=== PATIENT | female | born 1960 | race Caucasian/White ===

== ENCOUNTER 2016-11-05 23:38 | Emergency (ER) | payer MEDICAID ==
--- NOTE | ~2016-11-05 | CR58 ---
[facility] A Service of [facility] RADIOLOGY TEXT RESULTS PATIENT: JOSUE GARCES LOCATION: SED : 62 UNIT #: [id number] AGE: [address]: Daniel Pereira MD SEX: F ORDER DR: [id number] [address] [address] [id number] E MR#: [id number] Acc #: [id number] NAME: JOSUE GARCES : 1960 SEX: F STUDY DATE/TIME: 11/06/2016 0:44 UNIT: SED ROOM: STUDY DESCRIPTION: CR Cervical Spine 2 or 3 Views Attending Physician: Daniel Pereira M.D. Ordering Physician: Daniel Pereira M.D. Primary Care Physician: Gagan Hodge M.D. MEDICAL IMAGING REPORT This report is preliminary unless electronic signature is present. EXAM Cervical series, 11/06/2016 INDICATION 56-year-old female with chronic neck pain posteriorly for the past month, intermittently. TECHNIQUE Lateral swimmer's, open mouth odontoid AP and dedicated odontoid views were performed. COMPARISON 03/01/2015 FINDINGS Dens and lateral masses are intact. No acute fracture. Minimal uncovertebral spurring in the mid and lower cervical levels. Prevertebral soft tissues are unremarkable. Cervicothoracic junction intact. There is mild facet arthropathy in the mid and upper cervical levels. Minimal degenerative disc disease at C6-7 with spur formation similar to the prior study. IMPRESSION 1. No acute fracture or malalignment. 2. Degenerative changes as described similar to the prior study. Dictated by... Pedro Luis Merritt M.D. THIS IS AN ELECTRONICALLY VERIFIED REPORT Pedro Luis Merritt M.D. at 11/06/2016 9:56 PM [facility] A Service [facility] & [facility] RADIOLOGY TEXT RESULTS PATIENT: JOSUE GARCES LOCATION: SED : 62 UNIT #: [id number] AGE: [address]: Daniel Pereira MD SEX: F ORDER DR: KELSIE/patricia TD: 11/06/2016 10:27 JOB #: [id number] MEDICAL IMAGING REPORT Page 1 of 1
[~2016-11-05 23:38] MED LIST: ABILIFY5 MG PO; ACETAMINOPHEN PO; ADVIL200 M1 PO; ALPRAZOLAM PO; AMBIEN PO; ANTIVERT PO; ASPIRIN PO; ATIVAN PO; BENTYL10 MG PO; BENZONATATE PO; CIPRO PO; EFFEXOR-XR150 MG PO; FIORICET1 TAB PO; HCTZ PO; HYDROCODON-ACE1 EAC7 PO; HYDROCODON-ACE1 EAC9 PO; HYDROCODONE 7.5MG PO; HYDROCODONE/APA1 T16 PO; IBUPROFEN PO; IMITREX25 MG PO; LEVAQUIN750 MG PO; LISINOPRIL PO; LITHIUM PO; LORTAB 10/500 T1 TAB PO; LORTAB 5/500 TA1 TA1 PO; LORTAB 5/500 TA1 TA2 PO; METOPROLOL SUCC25 MG PO; MOTRIN600 M1 PO; NAPROXEN PO; NEURONTIN PO; PHENERGAN PO; PHENERGAN25 M1 DOB; PHENERGAN25 M1 PO; PRILOSEC PO; PROZAC PO; SEROQUEL PO; SYMBYAX 6-251 UDCAP PO; SYMBYAX PO; ULTRAM PO; VICODIN 5/500 T1 TAB PO; VICODIN PO; VOLTAREN75 MG PO; ZESTRIL10 M1 PO; ZOFRAN ODT4 MG PO
[2016-11-06] MEDS ORDERED: FLEXERIL10 MG PO (01:53)
== END 2016-11-06 01:59 | disposition home or self-care (01) ==
LOC: SED 23:38
DX: M54.2 Cervicalgia (principal); K21.9 Gastro-esophageal reflux disease without esophagitis; F17.200 Nicotine dependence, unspecified, uncomplicated; Z79.899 Other long term (current) drug therapy; Z88.5 Allergy status to narcotic agent; Z88.8 Allergy status to other drugs, medicaments and biological substances; Z91.010 Allergy to peanuts
CPT/HCPCS: 72040; 99283

== ENCOUNTER → 2016-12-27 | Outpatient (CLI) | payer MEDICAID ==
[~2016-12-27] MED LIST changes: +FLEXERIL10 MG PO; +OXYCONTIN
--- NOTE | ~2016-12-27 | CR93 ---
[facility] A Service of [facility] & [facility] RADIOLOGY TEXT RESULTS PATIENT: JOSUE GARCES LOCATION: SRALashell : 62 UNIT #: [id number] AGE: [address]: PARUL HESS SEX: F ORDER DR: [id number] [address] [address] [id number] O MR#: [id number] Acc #: [id number] NAME: JOSUE GARCES : 1960 SEX: F STUDY DATE/TIME: 12/27/2016 9:59 UNIT: [facility] ROOM: STUDY DESCRIPTION: CR Elbow Min 3 Views Lt Attending Physician: Parul Hess Referring Physician: Parul Hess Ordering Physician: Physician Non-Staff Primary Care Physician: Gagan Hodge M.D. MEDICAL IMAGING REPORT This report is preliminary unless electronic signature is present. EXAM Left elbow HISTORY Medial elbow pain for the past 2 months. TECHNIQUE 3 views of the elbow were obtained. FINDINGS 3 views of the elbow show a small elbow joint effusion. There is no evidence of fracture, bony erosion or large osteophyte. No osteochondral fragments are seen. IMPRESSION Elbow joint effusion. No bony abnormalities are seen. Dictated by... Obi Omalley M.D. THIS IS AN ELECTRONICALLY VERIFIED REPORT Obi Omalley M.D. at 12/27/2016 6:20 PM FERNANDO/angelica TD: 12/27/2016 10:57 JOB #: [id number] MEDICAL IMAGING REPORT Page 1 of 1
== END | disposition home or self-care (01) ==
LOC: SRAD 09:49
DX: M25.522 Pain in left elbow (principal); M25.422 Effusion, left elbow
CPT/HCPCS: 73080

== ENCOUNTER 2017-01-10 14:21 | Emergency (ER) | payer MEDICAID ==
--- NOTE | ~2017-01-10 | CT4 ---
[facility] A Service of [facility] RADIOLOGY TEXT RESULTS PATIENT: JOSUE GARCES LOCATION: SED : 62 UNIT #: [id number] AGE: [address]: Miranda Garcia MD SEX: F ORDER DR: [id number] [address] [address] [id number] E MR#: [id number] Acc #: [id number] NAME: JOSUE GARCES : 1960 SEX: F STUDY DATE/TIME: 01/10/2017 15:02 UNIT: SED ROOM: STUDY DESCRIPTION: CT Abd and Pelv Wo Cont Attending Physician: Miranda Garcia M.D. Ordering Physician: Miranda Garcia M.D. Primary Care Physician: Gagan Hodge M.D. MEDICAL IMAGING REPORT This report is preliminary unless electronic signature is present. EXAM CT of the abdomen and pelvis without contrast media. HISTORY SUPPLIED Left-sided abdominal pain beginning January 09. TECHNIQUE Axial imaging of the abdomen and pelvis was performed without contrast media. The study is directly compared to a contrast-enhanced study of March 01, 2015. This CT exam was performed with one or more of the following radiation dose reduction techniques: automatic exposure control, adjustment of mA and/or kV according to patient size, and iterative reconstruction. FINDINGS There is diffuse hepatic steatosis. Gallbladder is normal. Spleen is of normal size. Adrenal glands are normal. Pancreas is normal. Both the right and left kidney are normal. There is a tiny nonobstructing stone in a midpole elias of the left kidney. No dilated or thickened loops of bowel are identified. Scans were continued into the pelvis. The patient has a redundant sigmoid. There is no evidence of significant diverticulosis or diverticulitis. Bladder appears unremarkable. CONCLUSION 1. Diffuse hepatic steatosis unchanged from prior studies. 2. Tiny nonobstructing mid polar left renal stone. 3. No acute findings in the abdomen or pelvis. 1. [facility] A Service of [facility] RADIOLOGY TEXT RESULTS PATIENT: JOSUE GARCES LOCATION: SED : 62 UNIT #: [id number] AGE: [address]: Miranda Garcia MD SEX: F ORDER DR: Dictated by... Daniel Mahmood M.D. THIS IS AN ELECTRONICALLY VERIFIED REPORT Daniel Mahmood M.D. at 01/11/2017 2:58 PM SYD/marah TD: 01/10/2017 20:58 JOB #: [id number] MEDICAL IMAGING REPORT Page 1 of 1
[~2017-01-10 14:21] MED LIST changes: -OXYCONTIN
[2017-01-10] MEDS ORDERED: OXYCONTIN (14:28)
[2017-01-10 14:56] LABS: BASOPHIL% 0.3 % (0-2.5); EOSINOPHIL# 0.1 X10e3 (0-0.7); EOSINOPHIL% 1.3 % (0.0-7.0); HEMATOCRIT 38.8 % (35.0-45.0); HEMOGLOBIN 13.1 gm/dL (12.0-16.0); LYMPHOCYTE# 2.9 X10e3 (1.0-3.5); LYMPHOCYTE% 35.9 % (17.0-45.0); MEAN CELL VOLUME 88.1 FL (83-96); MEAN CORPUSCULAR HEMOGLOBIN 29.7 PG (28-34); MEAN CORPUSCULAR HGB CONC 33.7 g/dL (30-36); MONOCYTE# 0.8 X10e3 (0-1.0); MONOCYTE% 9.8 % (3.0-12.0); NEUTROPHIL# 4.3 X10e3 (1.5-7.1); NEUTROPHIL% 52.7 % (40-75); PLATELET COUNT 368 X10e3 (140-420); RED CELL DISTRIBUTION WIDTH 13.7 % (11.0-15.5); WHITE BLOOD COUNT 8.2 X10e3 (4.0-10.5)
[2017-01-10 15:06] LABS: DIFF IND NO
[2017-01-10 15:07] LABS: URINE SOURCE CLEAN CATCH
[2017-01-10 15:09] LABS: URINE APPEARANCE CLEAR; URINE BILIRUBIN NEG (NEG); URINE BLOOD NEG (NEG); URINE COLOR YELLOW; URINE GLUCOSE NEG (NORM); URINE KETONE NEG (NEG); URINE LEUKOCYTE ESTERASE NEG (NEG); URINE NITRATE NEG (NEG); URINE PH 5.5 (5-8); URINE PROTEIN NEG (NEG); URINE SPECIFIC GRAVITY <=1.005 (1.003-1.035); URINE UROBILINOGEN 0.2 MG/DL (NORM)
[2017-01-10 15:10] LABS: MICRO INDICATED? NO
[2017-01-10 15:15] LABS: ALBUMIN SERUM 4.1 g/dL (3.5-5.0); ALKALINE PHOSPHATASE 85 U/L (32-92); ALT (SGPT) 30 U/L (10-40); AMYLASE 18 U/L (0-46); AST (SGOT) 31 U/L (10-42); BILIRUBIN,TOTAL 0.4 mg/dL (0.2-2.0); BLOOD UREA NITROGEN 10 mg/dL (9-23); CALCIUM SERUM 9.2 mg/dL (8.4-10.2); CARBON DIOXIDE 22 mmol/L (22-31); CHLORIDE 105 mmol/L (100-111); CREATININE SERUM 0.8 mg/dL (0.6-1.4); GLOM FILT RATE Estimated 83.1 mL/min (>60); GLUCOSE FASTING 81 mg/dL (70-110); LIPASE 32 U/L (22-51); POTASSIUM 3.8 mmol/L (3.5-5.1); PROTEIN TOTAL SERUM 7.8 g/dL (6.0-8.3); SODIUM 135 mmol/L (135-145)
[2017-01-10 15:17] LABS: BILIRUBIN, DIRECT <0.1 mg/dL (0.0-0.2); BILIRUBIN,INDIRECT 0.3 mg/dL (0.0-0.9)
== END 2017-01-10 16:43 | disposition home or self-care (01) ==
LOC: SED 14:21
PROVIDERS: Student in an Organized Health Care Education/Training Program
DX: R10.9 Unspecified abdominal pain (principal); Z88.5 Allergy status to narcotic agent; Z88.1 Allergy status to other antibiotic agents; Z91.010 Allergy to peanuts; Z79.899 Other long term (current) drug therapy
CPT/HCPCS: 74176; 80048; 80076; 81003; 82150; 83690; 85025; 96361; 96374; 96375; 99284; J1170; J2405